=== PATIENT | female | born 1960 | race Caucasian/White ===

== ENCOUNTER 2018-10-07 11:03 | Outpatient (CLI) | payer OTHER ==
[~2018-10-07] VITALS: Ht 160 cm; Wt 61.2 kg
[2018-10-07] MEDS ORDERED: QUET100T PO (13:58)
[2018-10-07] MEDS ORDERED: OMEP20CA12 PO (13:58)
[2018-10-07] MEDS ORDERED: ATOR10TA66 PO (13:58)
[2018-10-07] MEDS ORDERED: RT-ALBUINH IH (13:58)
[2018-10-07] MEDS ORDERED: DICL75TA2 PO (13:58)
[2018-10-07] MEDS ORDERED: CARI350T27 PO (13:58)
[2018-10-07] MEDS ORDERED: BUDE10.22 IH (13:58)
== END 2018-10-07 14:01 | disposition home or self-care (01) ==
LOC: PREOP 11:03
PROVIDERS: ATTEND Surgery
DX: Z01.818 Encounter for other preprocedural examination (principal)

== ENCOUNTER → 2018-10-09 | Outpatient (CLI) | payer BC, OTHER ==
[~2018-10-09] MED LIST: ATOR10TA66 PO; BUDE10.22 IH; CARI350T27 PO; DICL75TA2 PO; OMEP20CA12 PO; QUET100T PO; RT-ALBUINH IH
--- NOTE | 2018-10-09 19:04 | Diagnostic Imaging Report ---
INDICATION: Routine screening. Comparison is made with prior mammograms from 03/09/2016 and 03/04/2015. 2-D and 3-D bilateral screening mammography was performed with Computer-Aided Detection (CAD) system. FINDINGS: Both breasts are heterogeneously dense, limiting the sensitivity of mammography. Previously noted benign nodular density in the upper-outer right breast has decreased in size. No new mass or malignant-appearing microcalcifications are seen. The axillae are unremarkable. IMPRESSION: No mammographic features suspicious for malignancy are identified. ACR BI-RADS Category 2: Benign findings. Result letter will be mailed to the patient. Note: At least 10% of breast cancer is not imaged by mammography. Dictated by: Dictated on workstation # [id number]
== END ==
LOC: RAD 07:21
PROVIDERS: ATTEND Family Medicine
DX: Z12.31 Encounter for screening mammogram for malignant neoplasm of breast (principal)
CPT/HCPCS: 77067

== ENCOUNTER 2018-10-10 10:55 | Day surgery (SDC) | payer BC, OTHER ==
[~2018-10-10] VITALS: Ht 160 cm; Wt 61.2 kg
[2018-10-10] MEDS ORDERED: NS IV 500 ML 500 ML IV PRN (11:04)
[2018-10-10] MEDS ORDERED: NS IV 500 ML 500 ML ONE ×2 (11:06→12:10)
[2018-10-10] MEDS ORDERED: MIDAZOLAM 2 MG/2 ML (VERSED) VIAL ONE ×5 (11:09→12:31)
[2018-10-10] MEDS ORDERED: LIDOCAINE JELLY 2% 6 ML SYRINGE ONE (11:10)
[2018-10-10] MEDS ORDERED: fentaNYL INJECTION 100 MCG/2 ML AMP ONE (11:10)
[2018-10-10] MEDS ORDERED: MIDAZOLAM 2 MG/2 ML (VERSED) VIAL IVP ONE (11:15)
[2018-10-10] MEDS ORDERED: LIDOCAINE JELLY 2% 6 ML SYRINGE MM PRN (11:15)
[2018-10-10] MEDS ORDERED: fentaNYL INJECTION 100 MCG/2 ML AMP IVP ONE (11:15)
[2018-10-10 11:24] VITALS: BP 105/67
--- NOTE | 2018-10-10 12:00 | Conscious Sedation/ASA ---
Conscious Sedation Pre-Proced Time 12:00 ASA Score 2 For ASA 3 and 4: Consider anesthesia and medical clearance. Also, for patients with a history of failed moderate sedation consider anesthesia. Airway Lungs Heart ASA score ASA 1: a normal healthy patient ASA 2: a patient with a mild systemic disease (mid diabetes, controlled hypertension, obesity ASA 3: a patient with a severe systemic disease that limits activity (angina , COPD, prior Myocardial infarction) ASA 4: a patient with an incapacitating disease that is a constant threat to life (CHF, renal failure) ASA 5: a moribund patient not expected to survive 24 hrs. (ruptured aneurysm) ASA 6: a declared brain- patient whose organs are being harvested. For emergent operations, add the letter E after the classification Mallampati Classification Grade 2 Sedation Plan Analgesia, Amnesia, Plan communicated to team members, Discussed options with patient/fam, Discussed risks with patient/fam The patient is an appropriate candidate to undergo the planned procedure, sedation, and anesthesia. The patient immediately re-assessed prior to indication. JAKE BAILEY MD Oct 10, 2018 12:00
--- NOTE | 2018-10-10 12:01 | Progress Note-Pre Operative ---
Pre-Operative Progress Note H&P Reviewed The H&P was reviewed, patient examined and no changes noted. Date Seen by Provider: Oct 10, 2018 Time Seen by Provider: 12:00 Date H&P Reviewed: Oct 10, 2018 Time H&P Reviewed: 12:00 Pre-Operative Diagnosis: screening colonoscopy JAKE BAILEY MD Oct 10, 2018 12:00
--- NOTE | 2018-10-10 12:02 | Discharge Inst-Surgical ---
D/C Lap Instructions-LYNN Follow Up 10 years Activity as tolerated High Fiber Diet 25g or more per day Avoid Alcohol, Caffeine, Spicy [place] and Acid foods. Drink 64 fluid oz or more of fluids per day. Symptoms to Report: Fever over 101 degree F, Nausea/Vomiting If any problems/questions: Contact your physician or go to Emergency Room JAKE BAILEY MD Oct 10, 2018 12:02
[2018-10-10] MEDS ORDERED: HYDROcodone/APAP 5 MG/325 MG (LORTAB) TAB PO PRN (12:15)
[2018-10-10] MEDS ORDERED: ACETAMINOPHEN 325 MG TABLET PO PRN (12:15)
[2018-10-10] MEDS ORDERED: morphine INJ 10 MG/ML 1ML (SYR OR VIAL) IV PRN (12:15)
[2018-10-10] MEDS ORDERED: ONDANSETRON 4 MG/2 ML (SDV) Z0FRAN IV PRN (12:15)
--- NOTE | 2018-10-10 12:58 | Progress Note-Post Operative ---
Post-Operative Progess Note Surgeon (s)/Patternmaker Hand (s) Surgeon JAKE BAILEY MD Patternmaker Hand: none Pre-Operative Diagnosis screening colonoscopy Post-Operative Diagnosis chronic stage 3 ext and int hemorrhoids, small HP rectal polyp. Procedure & Operative Findings Date of Procedure 10/10/18 Procedure Performed/Findings Colonoscopy with bx. Anesthesia Type cs Estimated Blood Loss Estimated blood loss (mL): minimal Specimens/Packing Specimens Removed rectal polyp JAKE BAILEY MD Oct 10, 2018 12:58
[2018-10-10 13:05] VITALS: BP 107/61
[2018-10-10 13:30] VITALS: BP 124/69
[2018-10-10 15:33] VITALS: BP 124/69
--- NOTE | 2018-10-10 21:05 | OPERATIVE REPORT ---
DATE OF SERVICE: 10/10/2018 ATTENDING PRIMARY CARE PHYSICIAN: Dr. Tarik Tapia. PREOPERATIVE DIAGNOSIS: Screening colonoscopy. POSTOPERATIVE DIAGNOSES: Chronic stage III external and internal hemorrhoids, small hyperplastic polyp of the rectum 2 mm in size. Remainder of the colon and rectum were normal. PROCEDURE: Colonoscopy with biopsy. SURGEON: Jake Lebron MD ANESTHESIA: Conscious sedation. ESTIMATED BLOOD LOSS: Minimal. FINDINGS: Chronic stage II external and internal hemorrhoids with no active inflammation or any bleeding. There was significant redundant anoderm consistent with chronic stage external hemorrhoids. Small hyperplastic polyp of the rectum 2 mm in size. Remainder of the rectum and colon were normal. DISPOSITION: The patient tolerated the procedure well. INDICATIONS: The patient is a 58-year-old female in need of a screening colonoscopy. She has not had a colonoscopy up to this point in her life. She does report that she has had some issues with constipation in the past. She does not report any family history of colon cancer and does not report any red blood per rectum nor any dark tarry stools. She does state that she has had a longstanding history of hemorrhoids for years, which a flare up significantly causing pain, irritation as well as bleeding. She would like to have these evaluated and colonoscopy as well. DESCRIPTION OF PROCEDURE: The patient was brought to the endoscopy suite, laid in left lateral decubitus position. After adequate IV pain and sedative medications and conscious sedation anesthesia, a digital rectal examination was performed. Chronic stage III external and internal hemorrhoids were identified. These were not actively edematous or inflamed and no bleeding. There was significant redundant anoderm consistent with a chronic stage III external as well as visible internal hemorrhoids beginning to protrude. Normal sphincter tone was felt and there were no palpable masses. The endoscope was then intubated into the anus and rectum gently insufflated. The endoscope was then advanced through the valves of Venegas of the rectum, where a small hyperplastic polyp approximately 2 mm in size was identified. This was biopsied and destroyed using forceps and electrocautery. The endoscope was then advanced to the sigmoid colon, where no diverticulosis identified. The endoscope was then advanced to the remainder of the descending, transverse and ascending colon to the cecum. These segments were normal. There were no polyps or any neoplasms identified throughout the colon or rectum. The endoscope was then slowly withdrawn while taking a second look and suctioning residual air with no additional findings. The patient tolerated the procedure well. We will recommend continued conservative management with a high fiber diet with at least 20 grams of fiber per day as well as significant amounts of water daily to promote soft stools on a daily basis. She does have significant hemorrhoids and we will recommend a conservative management with the same concept of high fiber with very soft stools that required no straining upon defecation as well as Sitz baths q.i.d. as well as after every bowel movement. If she continues to have symptomatic hemorrhoids despite maximal medical therapy, she would be a candidate for a formal closed Gallardo hemorrhoidal excision which we will discuss in the office. Job ID: [id number] DocumentID: [id number] Dictated Date: 10/10/2018 12:50:50 [employer] Sales Consultant Date: 10/10/2018 21:04:37 Dictated By: JAKE LEBRON MD
== END 2018-10-10 13:45 | disposition home or self-care (01) ==
LOC: ENDO 10:55
PROVIDERS: ATTEND Surgery
DX: Z12.11 Encounter for screening for malignant neoplasm of colon (principal); K62.1 Rectal polyp; K64.2 Third degree hemorrhoids; E78.00 Pure hypercholesterolemia, unspecified; K21.9 Gastro-esophageal reflux disease without esophagitis; J45.909 Unspecified asthma, uncomplicated; F32.9 Major depressive disorder, single episode, unspecified; M51.26 Other intervertebral disc displacement, lumbar region; Z79.899 Other long term (current) drug therapy

== ENCOUNTER → 2021-02-01 | Outpatient (CLI) | payer BC, OTHER ==
[~2021-02-01] MED LIST changes: -OMEP20CA12 PO; +OMEP20CA18 PO
--- NOTE | 2021-02-02 13:23 | Diagnostic Imaging Report ---
INDICATION: 2-D and 3-D digital screening with CAD. Compared with exam 09/2018, 02/2016 and 02/2015 FINDINGS: There are scattered fibroglandular densities in the breast. No dominant mass, spiculated lesion, architectural distortion. Skin, nipples and axilla within normal limits IMPRESSION: Stable negative mammograms. BI-RADS Category 1 ACR BI-RADS Category 1: Negative. Result letter will be mailed to the patient. Note: At least 10% of breast cancer is not imaged by mammography. Dictated by: Dictated on workstation # [id number]
== END ==
LOC: RAD 15:45
PROVIDERS: ATTEND Family Medicine
DX: Z12.31 Encounter for screening mammogram for malignant neoplasm of breast (principal)
CPT/HCPCS: 77063; 77067

== ENCOUNTER → 2021-02-24 | Outpatient (CLI) | payer BC, OTHER ==
--- NOTE | 2021-02-24 17:01 | Diagnostic Imaging Report ---
INDICATION: Left hip pain. TIME OF EXAM: 12:54 PM 2 views left hip were obtained. FINDINGS: Femoroacetabular alignment is normal. Joint spaces are well-maintained. The femoral head and neck are intact. No fractures are seen. IMPRESSION: No acute bony abnormality is detected. Dictated by: Dictated on workstation # [id number]
== END ==
LOC: RAD 12:41
PROVIDERS: ATTEND Family Medicine
DX: M25.552 Pain in left hip (principal)
CPT/HCPCS: 73502

== ENCOUNTER → 2021-09-11 | Outpatient (CLI) | payer BC, OTHER ==
--- NOTE | 2021-09-11 16:26 | Diagnostic Imaging Report ---
INDICATION: Fall. Neck pain. COMPARISON: None FINDINGS: Frontal, lateral, and odontoid views of the cervical spine were submitted. The cervical spine is visualized up to the C7/T1 level on the lateral projection. There is normal vertebral height and alignment. There is no evidence of fracture or bone destruction. No prevertebral soft tissue swelling is seen. Intervertebral disc spaces are well-maintained. The open-mouth view demonstrates normal C1/C2 alignment. IMPRESSION: 1. Normal cervical spine series. Dictated by: Dictated on workstation # [id number]
--- NOTE | 2021-09-11 16:26 | Diagnostic Imaging Report ---
INDICATION: FALL, NECK AND LT SHOULDER PAIN COMPARISON: None. FINDINGS: 3 views of the left shoulder were obtained. There is no fracture, dislocation, or other acute bony abnormality identified. The soft tissues appear unremarkable. No radiopaque foreign body is identified. The visualized portions of the left lung are clear. IMPRESSION: No acute fractures or dislocations of the left shoulder. Dictated by: Dictated on workstation # [id number]
== END ==
LOC: RAD 15:51
PROVIDERS: ATTEND Family Medicine
DX: M54.2 Cervicalgia (principal); M25.512 Pain in left shoulder; W19.XXXA Unspecified fall, initial encounter
CPT/HCPCS: 72040; 73030

== ENCOUNTER 2023-06-09 14:13 | Emergency (ER) | payer BC ==
[~2023-06-09] VITALS: Ht 162.6 cm; Wt 54.4 kg
[~2023-06-09 14:13] MED LIST changes: +ALBU8.5H6 IH; -RT-ALBUINH IH
--- NOTE | 2023-06-09 14:44 | ED GI ---
General Chief Complaint: Abdominal/GI Problems Stated Complaint: ABD PAIN AND VOMITING Source of Information: Patient Exam Limitations: No Limitations History of Present Illness Date Seen by Provider: Jun 09, 2023 Time Seen by Provider: 14:30 Initial Comments Patient is a 63-year-old female who presents to the emergency room with a chief complaint of diffuse abdominal cramping, nausea, vomiting and diarrhea since Saturday of last week, 5 days. She states she was able to eat a little Thanksgiving lunch on however the vomiting and diarrhea returned with a vengeance. No black or bloody stools, no blood in her emesis. She was seen at urgent care yesterday, had a shot for nausea that did not really help very much. She was also identified as having a urinary tract infection and started on Bactrim. She has had 2 doses. She feels a lot of suprapubic "pressure" she denies fevers or chills. She has had prior cholecystectomy. No known sick contacts. She did take Azo for the urinary tract symptoms on Saturday prior to the onset of nausea and vomiting and thought that might have caused her symptoms. She has not tried any gkxn-suo-hmswnhl antidiarrheal tablets. She is having upwards of 6 episodes of watery diarrhea a day. The only thing she has had since is a little chicken noodle soup as far as food and she has been able to hold down sips of Gatorade and water. Has not been able to hold down her routine medications - sertraline and omeprazole Appears alert, nontoxic. Stable vital signs. Timing/Duration: 4-5 Days Severity/Quality: Moderate Location: Generalized Abdomen Activities at Onset: None Modifying Factors: Worsens With Eating Associated Symptoms: Nausea/Vomiting, Weakness Allergies and Home Medications Allergies Coded Allergies: No Known Drug Allergies (Unverified , 10/07/18) Patient Home Medication List Home Medication List Reviewed: Yes Albuterol Sulfate (Ventolin Hfa) 1 Puff Puff, 2 PUFF IH Q4H PRN for WHEEZING, (Reported) Entered as Reported by: SHANITA PETERSEN on 10/07/18 1358 Atorvastatin Calcium (Atorvastatin Calcium) 10 Mg Tablet, 10 MG PO HS, (Reported) Entered as Reported by: SHANITA PETERSEN on 10/07/18 1358 Budesonide/Formoterol Fumarate (Symbicort 80-4.5 Mcg Inhaler) 10.2 Gm Hfa.aer.ad, 2 PUFF IH BID, (Reported) Entered as Reported by: SHANITA PETERSEN on 10/07/18 1358 Carisoprodol (Carisoprodol) 350 Mg Tablet, 350 MG PO BID PRN for MUSCLE SPASMS, (Reported) Entered as Reported by: SHANITA PETERSEN on 10/07/18 1358 Diclofenac Sodium (Diclofenac Sodium) 75 Mg Tablet.dr, 75 MG PO BID, (Reported) Entered as Reported by: SHANITA PETERSEN on 10/07/18 1358 Omeprazole (Omeprazole) 20 Mg Capsule.dr, 20 MG PO DAILY, (Reported) Entered as Reported by: SHANITA PETERSEN on 10/07/18 1358 Ondansetron (Ondansetron Odt) 8 Mg Tab.rapdis, 8 MG SL Q8H PRN for NAUSEA/VOMITING Prescribed by: ROCK ROJAS on 06/09/23 1552 Quetiapine Fumarate (Seroquel) 100 Mg Tablet, 100 MG PO DAILY, (Reported) Entered as Reported by: SHANITA PETERSEN on 10/07/18 1358 Review of Systems Review of Systems Constitutional: see HPI, weakness EENTM: No Symptoms Reported Respiratory: No Symptoms Reported Cardiovascular: No Symptoms Reported Gastrointestinal: Diarrhea, Nausea, Vomiting Genitourinary: Frequency, Other (bladder "pressure") Musculoskeletal: no symptoms reported Skin: no symptoms reported Psychiatric/Neurological: No Symptoms Reported Past Njyqxrf-Wlzyil-Qbqozl Hx Seasonal Allergies Seasonal Allergies: Yes Past Medical History Surgeries: Yes Section, Gallbladder Respiratory: Yes Asthma Cardiac: No Neurological: No Genitourinary: No Gastrointestinal: Yes Gastroesophageal Reflux, Hiatal Hernia Musculoskeletal: Yes Arthritis, Chronic Back Pain Endocrine: No HEENT: No Cancer: Yes Skin What Type of Treatment Did You: Surgical Intervention Psychosocial: No Integumentary: No Blood Disorders: No Physical Exam Vital Signs Vital Signs - First Documented 06/09/23 14:23 Temp 37.3 Pulse 92 Resp 20 B/P (MAP) 134/72 (92) Pulse Ox 98 Capillary Refill : Height/Weight/BMI Height: 5'3.00" Weight: 135lbs. 0.0oz. [id number]; 23.9 BMI Method: General Appearance: WD/WN, no apparent distress HEENT: PERRL/EOMI Respiratory: lungs clear, normal breath sounds, no respiratory distress, no accessory muscle use Cardiovascular: regular rate, rhythm Gastrointestinal: normal bowel sounds, soft, tenderness (mild epigastric tenderness) Extremities: normal range of motion, normal inspection Neurologic/Psychiatric: alert, normal mood/affect, oriented x 3 Skin: normal color, warm/dry Progress/Results/Core Measures Results/Orders Lab Results Laboratory Tests Test 06/09/23 14:30 Range/Units Sodium Level 133 L 135-145 MMOL/L Potassium Level 3.5 L 3.6-5.0 MMOL/L Chloride Level 101 98-107 MMOL/L Carbon Dioxide Level 19 L 21-32 MMOL/L Anion Gap 13 5-14 MMOL/L Blood Urea Nitrogen 13 7-18 MG/DL Creatinine 0.69 0.60-1.30 MG/DL Estimat Glomerular Filtration Rate 99 BUN/Creatinine Ratio 19 Glucose Level 111 H 70-105 MG/DL Calcium Level 8.9 8.5-10.1 MG/DL Corrected Calcium 9.3 8.5-10.1 MG/DL Total Bilirubin 0.6 0.1-1.0 MG/DL Aspartate Amino Transf (AST/SGOT) 32 5-34 U/L Alanine Aminotransferase (ALT/SGPT) 48 0-55 U/L Alkaline Phosphatase 92 40-136 U/L Total Protein 6.4 6.4-8.2 GM/DL Albumin 3.5 3.2-4.5 GM/DL My Orders Orders - ROCK ROJAS MD Lactated Ringers 1,000 Ml (Lactated Ring (06/09/23 14:45) Ondansetron Injection (Ondansetron Inj (06/09/23 14:45) Ed Iv/Invasive Line Start (06/09/23 14:39) Comprehensive Metabolic Panel (06/09/23 14:39) Medications Given in ED Vital Signs/I&O 06/09/23 06/09/23 14:23 16:06 Temp 37.3 Pulse 92 79 Resp 20 B/P (MAP) 134/72 (92) 108/66 Pulse Ox 98 98 Progress Progress Note : Time: 15:52 Progress Note Patient seen and evaluated by me. Evaluation today includes history and physical exam with comprehensive metabolic panel. Pertinent physical exam findings well-developed well-nourished pleasant, interactive 63-year-old female in no acute distress. She has a soft abdomen with mild tenderness in the epigastrium. No involuntary guarding or rebound. She has even and unlabored respirations. She is not tachycardic or hypotensive. Differential diagnosis includes Gastroenteritis, dyspepsia/GERD, food poisoning (?) Labs independently reviewed and interpreted by me. Her comprehensive metabolic panel shows normal electrolytes and renal function, slightly decreased CO2 at 19. Patient was treated with a liter of lactated Ringer's and given 8 mg of Zofran IV. She states that her nausea was getting much better. Recommended that she continue her antibiotics for the urinary tract infection identified last week. Encouraged clear liquids for 6 to 12 hours and then slowly advance her diet as tolerated. She is comfortable with the plan of care, all questions were sought and answered. No concerning findings for any acute surgical process in the abdomen. Likely viral gastroenteritis. Return precautions provided in both verbal and written format. Departure Impression Primary Impression: Acute gastroenteritis Disposition: 01 HOME, SELF-CARE Condition: Improved Departure-Patient Inst. Decision time for Depature: 15:51 Referrals: HERMELINDO DENNIS MD (PCP/Family) Primary Care Physician Patient Instructions: Viral gastroenteritis in adults Add. Discharge Instructions: Continue to sip clear liquids, Gatorade, water to stay hydrated. Use the ondansetron/Zofran 8 mg orally disintegrating tablets 1 every 6-8 hours as needed for nausea. Zaqk-gmn-srouqlm antidiarrheal tablets for your diarrhea. Please follow packaging instructions. Follow a bland diet this evening, chicken broth with mostly dry toast, plain crackers. Advance her diet as tolerated tomorrow. If you develop a fever, worsening abdominal pain, black or bloody stools please return to the emergency department for reevaluation. Scripts Ondansetron (Ondansetron Odt) 8 Mg Tab.rapdis 8 MG SL Q8H PRN for NAUSEA/VOMITING, #12 TAB Prov: ROCK ROJAS MD 06/09/23 Work/School Note: Family Work Note, Patient Received Medical Care In the Emergency Department On: Jun 09, 2023 Patient Will Be Able to Return to Work/School On: Jun 11, 2023 Work Release Form Date Seen in the Emergency Department: Jun 09, 2023 Return to Work: Jun 10, 2023 Copy Copies To 1: HERMELINDO DENNIS MD, KATHRYN M MD Jun 09, 2023 14:44
[2023-06-09] MEDS ORDERED: LACTATED RINGERS 1,000 ML 1,000 ML IV SCH (14:45)
[2023-06-09] MEDS ORDERED: ONDANSETRON INJECTION 4 MG/2 ML (SDV) IVP ONE (14:45)
[2023-06-09 14:47] LABS: ALBUMIN 3.5 GM/DL (3.2-4.5); POTASSIUM 3.5 MMOL/L (3.6-5.0)
[2023-06-09 14:48] LABS: CALCIUM 8.9 MG/DL (8.5-10.1)
[2023-06-09 14:49] LABS: TOTAL PROTEIN 6.4 GM/DL (6.4-8.2)
[2023-06-09 14:51] LABS: BILIRUBIN,TOTAL 0.6 MG/DL (0.1-1.0)
[2023-06-09 14:53] LABS: CREATININE SERUM 0.69 MG/DL (0.60-1.30)
[2023-06-09] MEDS ORDERED: ONDA8TAB13 SL (15:52)
[2023-06-09 16:06] VITALS: BP 108/66
== END 2023-06-09 16:07 | disposition home or self-care (01) ==
LOC: EDUNIT# 14:13 → ER 14:16
DX: K52.9 Noninfective gastroenteritis and colitis, unspecified (principal); Z90.49 Acquired absence of other specified parts of digestive tract
CPT/HCPCS: 36415; 80053